=== PATIENT | female | born 1960 | race Hispanic/Latino ===

== ENCOUNTER 2022-06-28 09:31 | Emergency (ER) | payer BC, OTHER ==
[~2022-06-28] VITALS: Ht 154.9 cm; Wt 52.2 kg
[2022-06-28 10:00] LABS: BASOPHILS % (AUTO) 0.9 % (0.0-5.0); EOSINOPHILS % (AUTO) 1.4 % (0.0-8.0); HEMATOCRIT 39.8 % (36-48); LYMPHOCYTES % (AUTO) 32.7 % (21.0-51.0); MEAN CORPUSCULAR HEMOGLOBIN 32.8 pg (27.0-33.0); MEAN CORPUSCULAR HGB CONC 34.4 g/dL (32.0-36.0); MEAN CORPUSCULAR VOLUME 95.2 fL (79-99); MONOCYTES % (AUTO) 9.2 % (3.0-13.0); NEUTROPHILS % (AUTO) 55.8 % (40.0-77.0); PLATELET COUNT (AUTO) 247 K/uL (130-400); RED BLOOD CELL COUNT(AUTO) 4.18 MIL/uL (4.00-5.50); RED CELL DISTRIBUTION WIDTH 12.5 % (11.0-15.5); WHITE BLOOD COUNT (AUTO) 4.3 K/uL (4.8-10.8)
[2022-06-28 10:05] LABS: APPEARANCE,URINE CLEAR (CLEAR); BILIRUBIN,URINE NEGATIVE (NEGATIVE); COLOR,URINE YELLOW (YELLOW); GLUCOSE, URINE (UA) NEGATIVE (NEGATIVE); KETONES,URINE NEGATIVE (NEGATIVE); LEUKOCYTE ESTERASE ,URINE NEGATIVE (NEGATIVE); NITRATE,URINE NEGATIVE (NEGATIVE); OCCULT BLOOD,URINE NEGATIVE (NEGATIVE); PROTEIN,URINE NEGATIVE (NEGATIVE); UROBILINOGEN,URINE 0.2 mg/dL (0.2-1.0)
[2022-06-28 10:15] LABS: CREATININE 1.1 mg/dL (0.5-1.5); POTASSIUM 4.9 mmol/L (3.5-5.1)
[2022-06-28 10:19] LABS: TOTAL PROTEIN, SERUM 7.5 g/dL (6.0-8.3)
[2022-06-28] MEDS: KETOROLAC 30MG VIAL (30MG/ML) ONE ×2 (11:42→11:43)
[2022-06-28] MEDS: ONDANSETRON 4MG INJ ONE ×2 (11:42→11:43)
[2022-06-28] MEDS ORDERED: KETOROLAC 30MG VIAL (30MG/ML) IVP ONE (12:00)
[2022-06-28] MEDS ORDERED: ONDANSETRON 4MG INJ IVP ONE (12:00)
[2022-06-28] MEDS ORDERED: ORPHENADRINE CITRATE 30 MG/ML ML IVP ONE (14:30)
[2022-06-28] MEDS ORDERED: IBUP-2070 PO (14:32)
[2022-06-28] MEDS ORDERED: CYCL-309 PO (14:32)
[2022-06-28 14:41] VITALS: BP 117/51
== END 2022-06-28 14:46 | disposition home or self-care (01) ==
LOC: EDH 09:31
DX: R10.12 Left upper quadrant pain (principal); R11.0 Nausea; E78.00 Pure hypercholesterolemia, unspecified; F41.9 Anxiety disorder, unspecified; Z87.442 Personal history of urinary calculi
CPT/HCPCS: 99284; 74176; 96374; 96375; 80053; 83690; 85025; 81003; 36415; J2405; J1885; J2360

== ENCOUNTER 2024-09-21 05:19 | Emergency (ER) | payer BC, OTHER ==
[~2024-09-21] VITALS: Ht 154.9 cm; Wt 53.5 kg
[~2024-09-21 05:19] MED LIST: CYCL-309 PO; IBUP-2070 PO
[2024-09-21] MEDS: ondanSETRON 4MG INJ IVP ONE ×2 (05:29→06:21)
[2024-09-21] MEDS: 0.9%NACL 1000ML 1,000 ML IV ONE (05:29)
[2024-09-21 05:41] LABS: APPEARANCE,URINE TURBID (CLEAR); BILIRUBIN,URINE NEGATIVE (NEGATIVE); COLOR,URINE YELLOW (YELLOW); GLUCOSE, URINE (UA) NEGATIVE (NEGATIVE); KETONES,URINE NEGATIVE (NEGATIVE); LEUKOCYTE ESTERASE ,URINE NEGATIVE Leu/uL (NEGATIVE); NITRATE,URINE NEGATIVE (NEGATIVE); OCCULT BLOOD,URINE NEGATIVE (NEGATIVE); PH,URINE 8.5 (5.0-8.0); PROTEIN,URINE 10 mg/dL (NEGATIVE); UROBILINOGEN,URINE 0.2 mg/dL (0.2-1.0)
[2024-09-21 05:53] LABS: ADD UA MICROSCOPIC NO
[2024-09-21 06:00] LABS: BASOPHILS # (AUTO) 0.06 K/uL (0.00-0.20); BASOPHILS % (AUTO) 0.8 % (0.0-5.0); EOSINOPHILS # (AUTO) 0.04 K/uL (0.00-0.70); EOSINOPHILS % (AUTO) 0.5 % (0.0-8.0); HEMATOCRIT 37.4 % (36-48); IMMATURE GRANULOCYTE ABSOLUTE 0.02 K/uL (0-1); LYMPHOCYTES # (AUTO) 1.3 K/uL (1.0-4.8); LYMPHOCYTES % (AUTO) 16.5 % (21.0-51.0); MEAN CORPUSCULAR HEMOGLOBIN 32.9 pg (27.0-33.0); MEAN CORPUSCULAR HGB CONC 35.8 g/dL (32.0-36.0); MEAN CORPUSCULAR VOLUME 91.9 fL (79-99); MONOCYTES # (AUTO) 0.6 K/uL (0.1-1.0); MONOCYTES % (AUTO) 7.5 % (3.0-13.0); NEUTROPHILS % (AUTO) 74.4 % (40.0-77.0); PLATELET COUNT (AUTO) 263 K/uL (130-400); RED BLOOD CELL COUNT(AUTO) 4.07 MIL/uL (4.00-5.50); RED CELL DISTRIBUTION WIDTH 11.9 % (11.0-15.5)
[2024-09-21 06:05] LABS: ALBUMIN 3.8 g/dL (3.5-5.0); BILIRUBIN,DIRECT 0.1 mg/dL (0.0-0.3); BILIRUBIN,TOTAL 0.3 mg/dL (0.2-1.0); POTASSIUM 3.8 mmol/L (3.5-5.1)
--- NOTE | 2024-09-21 06:19 | ERN ---
General Chief Complaint: Abdominal Pain Stated Complaint: ABD PAIN, N/V Time Seen by MD: 05:46 History of Present Illness Initial Comments Mrs Dejan Isaac is a 64-year-old female who comes in today with a chief complaint of abdominal pain. Patient reports she has a history of reflux and is currently on not a medication. Patient reports she has epigastric pain that radiates to her back. She reports the pain has been moderate. Patient denies any other symptomatology. Allergies: Coded Allergies: No Known Allergies (Unverified Allergy, Unknown, 06/28/22) Home Meds Active Scripts Cyclobenzaprine HCl (Cyclobenzaprine HCl) 10 Mg Tablet, 10 MG PO TID PRN for PAIN, #15 TAB 0 Refills Prov:VICKEY ESPINOSA MD 06/28/22 Ibuprofen (Ibuprofen) 600 Mg Tablet, 600 MG PO Q6H PRN for PAIN, #40 TAB 0 Refills Prov:VICKEY ESPINOSA MD 06/28/22 Past Medical History Past Medical History: Anxiety, High Cholesterol, Other Medical History Other: TACHYCARDIA, INSOMNIA Past Surgical History: Hysterectomy ROS Dictation Constitutional: Negative for fever,chills, and weight loss Eyes: Negative for injury, pain,redness, and discharge ENT: Negative for injury,pain or swelling Cardiovascular: Negative for chest pain, palpitations, and edema Respiratory: Negative for shortness of breath, cough, and wheezing, Abdomen/GI: Positive abdominal pain Back: Negative for injury and pain : Negative for injury, bleeding and discharge MS/Extremity: Negative for injury and deformity Skin: Negative for rash, and discoloration Neuro: Negative for headache, weakness, numbness, tingling, and seizure Psych: Negative for suicide ideation, homicidal ideation, and hallucinations Physical Exam Physical Exam Dictation General: awake, alert, NAD Head/Face: Normocephalic, atraumatic Eyes: PERRL, EOMI, vision at baseline ENT: oral cavity clear Neck: Trachea midline, supple Cardiovascular: RRR, normal S1/S2 Respiratory: CTAB, no respiratory distress, No rales or wheezes Abdomen: Positive for abdominal pain Skin: Warm, dry, normal turgor, no rash MS/Extremity: Pulses equal, no cyanosis, neurovascular intact, FROM Neuro: COAx4, GCS 15, strength 5/5, CN 2-12 intact Psych: Normal behavior, mood, and affect normal Results Laboratory and Microbiology Lab and Micro Result Laboratory Tests Test 09/21/24 05:34 09/21/24 05:40 Urine Color YELLOW (YELLOW) Urine Appearance TURBID (CLEAR) Urine pH 8.5 (5.0-8.0) H Urine Specific Anderson 1.020 (1.001-1.031) Urine Protein 10 mg/dL (NEGATIVE) H Urine Glucose (UA) NEGATIVE mg/dL (NEGATIVE) Urine Ketones NEGATIVE mg/dL (NEGATIVE) Urine Occult Blood NEGATIVE (NEGATIVE) Urine Nitrate NEGATIVE (NEGATIVE) Urine Bilirubin NEGATIVE mg/dL (NEGATIVE) Urine Urobilinogen 0.2 mg/dL (0.2-1.0) Urine Leukocyte Esterase NEGATIVE Ghislaine/uL Urine RBC 11-25 /HPF (0-1) H Urine WBC 2-5 /HPF (0-1) H Urine Amorphous Crystals (Auto) RARE /LPF (None Seen) Urine Bacteria None /HPF (None Seen) White Blood Count 8.0 K/uL (4.8-10.8) Red Blood Count 4.07 MIL/uL (4.00-5.50) Hemoglobin 13.4 g/dL (12.0-16.0) Hematocrit 37.4 % (36-48) Mean Corpuscular Volume 91.9 fL (79-99) Mean Corpuscular Hemoglobin 32.9 pg (27.0-33.0) Mean Corpuscular Hemoglobin Concent 35.8 g/dL (32.0-36.0) Red Cell Distribution Width 11.9 % (11.0-15.5) Platelet Count 263 K/uL (130-400) Mean Platelet Volume 9.3 fL (7.5-10.5) Immature Granulocyte % (Auto) 0.3 % (0-1) Neutrophils (%) (Auto) 74.4 % (40.0-77.0) Lymphocytes (%) (Auto) 16.5 % (21.0-51.0) L Monocytes (%) (Auto) 7.5 % (3.0-13.0) Eosinophils (%) (Auto) 0.5 % (0.0-8.0) Basophils (%) (Auto) 0.8 % (0.0-5.0) Neutrophils # (Auto) 6.0 K/uL (1.8-7.7) Lymphocytes # (Auto) 1.3 K/uL (1.0-4.8) Monocytes # (Auto) 0.6 K/uL (0.1-1.0) Eosinophils # (Auto) 0.04 K/uL (0.00-0.70) Basophils # (Auto) 0.06 K/uL (0.00-0.20) Absolute Immature Granulocyte (auto 0.02 K/uL (0-1) Nucleated Red Blood Cells 0.0 % (0.0-0.19) Sodium Level 140 mmol/L (136-145) Potassium Level 3.8 mmol/L (3.5-5.1) Chloride Level 105 mmol/L (101-111) Carbon Dioxide Level 28 mmol/L (21-32) Blood Urea Nitrogen 15 mg/dL (7-18) Creatinine 1.0 mg/dL (0.5-1.0) Glomerular Filtration Rate Calc 63 mL/min (>90) Random Glucose 111 mg/dL (70-105) H Total Calcium 9.3 mg/dL (8.5-10.1) Total Bilirubin 0.3 mg/dL (0.2-1.0) Direct Bilirubin 0.1 mg/dL (0.0-0.3) Aspartate Amino Transf (AST/SGOT) 23 U/L (10-37) Alanine Aminotransferase (ALT/SGPT) 15 U/L (12-78) Alkaline Phosphatase 109 U/L (50-136) Troponin I High Sensitivity 6 ng/L (4-50) Total Protein 7.0 g/dL (6.0-8.3) Albumin 3.8 g/dL (3.5-5.0) Amylase Level 89 U/L (25-115) Lipase 44 U/L (16-77) MDM MDM: Differential diagnosis: Gastroenteritis, hypotensive episode Patient is a 64-year-old female coming in to be evaluated for abdominal discomfort. Patient states he has been having some nauseousness and has been vomiting. Laboratory workup negative for acute findings CT did disclose fluid in the small bowel consistent with gastroenteritis. Because she had a hypotensive episode I advised her observation would be warranted patient refused states he wants to follow up with the PCP as he feels much better with IV fluids. Patient was walked around the ER and blood pressure was stable. ED Course Orders Procedure Category Date Status Time Cbc With Differential LAB 11/4/24 Complete 05:22 Basic Metabolic Panel LAB 09/21/24 Complete 05:22 Lipase LAB 09/21/24 Complete 05:22 Hepatic Function Panel LAB 09/21/24 Complete 05:22 Urinalysis Profile LAB 09/21/24 Complete 05:22 Us Abdominal Ruq\Ltd US 09/21/24 Resulted 05:23 0.9%Nacl 1000ml (Ns PHA 09/21/24 Complete 1000ml) 05:30 Ondansetron 4mg Inj PHA 09/21/24 Complete (Zofran 4mg Inj) 05:30 Amylase LAB 09/21/24 Complete 06:05 Troponin I High LAB 09/21/24 Complete Sensitivity 06:05 Urinalysis Profile LAB 09/21/24 Logged 06:05 Lactated Ringers PHA 09/21/24 Complete 1000ml (Lactated 06:30 Morphine 4mg Syg PHA 09/21/24 Complete (Morphine 4mg Syg) 06:30 Ondansetron 4mg Inj PHA 09/21/24 Complete (Zofran 4mg Inj) 06:30 Lidocaine Hcl 2% PHA 09/21/24 Complete Viscous (Lidocaine Hcl 06:30 Mag/Alum/Simeth 30ml PHA 09/21/24 Complete (Maalox Plus 30ml) 06:30 Dicyclomine Hcl PHA 09/21/24 Complete (Bentyl 10mg/5ml 06:30 Ct Abdomen/Pelvis CT 09/21/24 Resulted W/Contrast 07:29 Iohexol (Omnipaque) PHA 09/21/24 Complete 07:58 Current Medications Medications (Trade) Dose Ordered Sig/Jes Route PRN Reason Start Time Stop Time Status Last Admin Dose Admin Al Hydroxide/Mg Hydroxide (MAALox PLUS 30ML) 30 ml ONCE ONCE PO 09/21/24 06:30 09/21/24 06:31 DC 09/21/24 06:21 Dicyclomine HCl (Bentyl 10mg/5ml Syrup) 10 mg ONCE ONCE PO 09/21/24 06:30 09/21/24 06:31 DC 09/21/24 06:23 Iohexol (Omnipaque) 75 ml STK-MED ONCE IV 09/21/24 07:58 09/21/24 07:59 DC Lactated Ringer's 1,000 ml @ 0 mls/hr ONCE ONCE IV 09/21/24 06:30 09/21/24 06:31 DC 09/21/24 06:23 Lidocaine HCl (Lidocaine HCl 2% Viscous) 10 ml ONCE ONCE PO 09/21/24 06:30 09/21/24 06:31 DC 09/21/24 06:20 Morphine Sulfate (morPHINE 4MG SYG) 4 mg ONCE ONCE IVP 09/21/24 06:30 09/21/24 06:31 DC 09/21/24 06:21 Ondansetron HCl (zoFRAN 4MG INJ) 4 mg ONCE ONCE IVP 09/21/24 05:30 09/21/24 05:31 DC 09/21/24 05:29 Ondansetron HCl (zoFRAN 4MG INJ) 4 mg ONCE ONCE IVP 09/21/24 06:30 09/21/24 06:31 DC 09/21/24 06:21 Sodium Chloride 1,000 ml @ 0 mls/hr Q0M ONCE IV 09/21/24 05:30 09/21/24 05:31 DC 09/21/24 05:29 Vital Signs Date Time Temp Pulse Resp B/P (MAP) Pulse Ox O2 Delivery O2 Flow Rate FiO2 09/21/24 09:58 98.1 70 16 120/54 99 Room Air* 0 09/21/24 09:40 98.1 69 16 103/51 99 Room Air* 0 09/21/24 07:04 98.1 63 16 101/49 99 Room Air* 0 09/21/24 06:40 74 16 114/52 98 Room Air* 0 09/21/24 05:45 69 16 97/40 97 Room Air* 0 09/21/24 05:21 98.1 68 16 99/60 99 Room Air DX & DISP Disposition: Discharge Departure Impression: Primary Impression: Gastroenteritis Additional Impressions: Hypotensive episode, Dehydration, Constipation Condition: Stable Scripts LA/Lactobac Saliv/Bb/S.thermop (Acidophilus 175 mg Capsule) 175 Mg Capsule 175 MG PO DAILY for 10 Days, #10 CAP Prov: ROLAND COCHRAN MD 09/21/24 Metronidazole (Flagyl) 375 Mg Capsule 1 CAP PO BID for 7 Days, #14 CAP 0 Refills Prov: ROLAND COCHRAN MD 09/21/24 Additional Instructions: FOLLOW-UP WITH PRIMARY CARE PROVIDER IN 1 TO 2 DAYS. TAKE MEDICATIONS DIRECTED HERE IN THE EMERGENCY ROOM. OKAY TO CONTINUE HOME MEDICATIONS UNLESS OTHERWISE DISCUSSED DURING YOUR VISIT IN THE EMERGENCY ROOM TODAY. RETURN TO YOUR NEAREST EMERGENCY ROOM IF SYMPTOMS WORSEN OR IF THERE IS NO IMPROVEMENT. CALL 911 IF YOU NEED IMMEDIATE ASSISTANCE. TAKE TYLENOL [id number] NEEDED AND IF NO CONTRAINDICATIONS ARE PRESENT. INCREASE ORAL HYDRATION. A WOUND CULTURE OR URINE CULTURE WAS ORDERED HERE IN THE EMERGENCY ROOM DEPARTMENT PLEASE FOLLOW-UP WITH PRIMARY CARE PROVIDER AND ADVISE THEM TO GET REPEAT PORTS FROM OUR FACILITY. IF YOU HAD ANY VIVEK WRAP/SPLINTS THAT WERE APPLIED HERE, PLEASE DO NOT REMOVE THEM UNTIL YOU SEE YOUR PRIMARY CARE OR SPECIALTY. Referrals: Referrals: SELF,REFERRAL (PCP) LESTER STRAUSS MD Time of Disposition: 10:19 ASHLEE WHITLEY MD Sep 21, 2024 06:19 ROLAND COCHRAN MD Sep 21, 2024 10:21
[2024-09-21] MEDS: LIDOCAINE HCL 2% VISCOUS 15 ML UDCUP PO ONE (06:20)
[2024-09-21] MEDS: morPHINE 4 MG SYG IVP ONE (06:21)
[2024-09-21] MEDS: MAG/ALUM/SIMETH 30 ML UDCUP PO ONE (06:21)
[2024-09-21] MEDS: LACTATED RINGERS 1000ML 1,000 ML IV ONE (06:23)
[2024-09-21] MEDS: DICYCLOMINE HCL 10 MG/5 ML ML PO ONE (06:23)
[2024-09-21] MEDS ORDERED: IOHEXOL-350 75 ML VIAL IV ONE (07:58)
--- NOTE | 2024-09-21 08:34 | HMCIMG ---
CT ABDOMEN/PELVIS W/CONTRAST HISTORY: Pain COMPARISON: 06/28/2022 TECHNIQUE: Multiple sequential axial images of the abdomen and pelvis were obtained from the dome of the diaphragm through symphysis pubis. Patient was given 75 cc of Omnipaque through intravenous route. Oral contrast was not given. FINDINGS: No pleural effusion is seen bilaterally. There is no evidence of parenchymal disease or pulmonary nodule of the visualized lower lungs. Degenerative changes of the thoracolumbar spine are present. The heart is not enlarged. The liver, spleen, adrenal glands and pancreas are unremarkable. There is no evidence of hydronephrosis bilaterally. No evidence of renal stone is seen. Fecal material is seen in the colon. There are normal size retroperitoneal and mesenteric lymph nodes. No ascites is seen. Appendix is not well seen limiting evaluation. Nonspecific mild small bowel dilatation is seen. Clinical correlation is recommended. Uterus is not seen. Pelvic sidewalls are symmetric bilaterally. Bladder is well distended without wall thickening. IMPRESSION: 1. Large amount of fecal material is seen in the colon. No hydronephrosis is seen. Appendix is not well seen limiting evaluation. Mild small bowel dilatation is seen. CT was performed with one or more following dose reduction techniques: automated exposure control, adjustment of the mA and kv according to patient's size, or use of a iterative reconstruction technique.
--- NOTE | 2024-09-21 08:39 | HMCIMG ---
US ABDOMINAL RUQ\E\LTD HISTORY: Pain COMPARISON: 06/28/2022 TECHNIQUE: Right upper quadrant abdominal ultrasound study was performed. FINDINGS: Liver measured 14.9 cm. The visualized portion of the pancreas is within normal limits. Liver is echogenic consistent with liver parenchymal disease. No gallstone is seen. Common duct measures 3 mm. No evidence of gallbladder wall thickening is seen. Right kidney measures 9.9 x 3.3 x 4.3 cm. There is right upper pole renal stone measuring 4 x 3 x 4 mm. No hydronephrosis is seen of the right kidney. IMPRESSION: 1. No gallstones or ductal dilatation is seen. 2. No hydronephrosis is seen. The upper pole renal stone.
[2024-09-21 09:58] VITALS: BP 120/54; PULSE 70; RESP 16; TEMP 98.1; O2SAT 99
[2024-09-21] MEDS ORDERED: METR375C2 PO (10:21)
[2024-09-21] MEDS ORDERED: LA/L175C PO (10:21)
== END 2024-09-21 10:33 | disposition home or self-care (01) ==
LOC: EDH 05:19
DX: K52.9 Noninfective gastroenteritis and colitis, unspecified (principal); E86.0 Dehydration; I95.9 Hypotension, unspecified; K59.00 Constipation, unspecified; K21.9 Gastro-esophageal reflux disease without esophagitis; E78.00 Pure hypercholesterolemia, unspecified; F41.9 Anxiety disorder, unspecified; Z90.710 Acquired absence of both cervix and uterus; Z79.899 Other long term (current) drug therapy
CPT/HCPCS: 99285; 74177; 96374; 76705; 96361; 96375; 82150; 80076; 84484; 80048; 83690; 85025; 81003; 36415; 96376; J7120; J7030; J2405 ×2; J2270; Q9967